=== PATIENT | male | born 1970 | race African-American/Black ===

== ENCOUNTER 2018-02-03 18:02 | Emergency (ER) | payer OTHER ==
[~2018-02-03] VITALS: Ht 182.9 cm; Wt 74.8 kg
[2018-02-03 18:02] VITALS: BP 136/94
--- NOTE | 2018-02-03 19:02 | NUR ---
Fred denia in ED - 02/03/18 at 1917 by RONALDO the patient came to ER today for treatment and evaluation of abdominal pain with nausea and vomiting
--- NOTE | 2018-02-03 19:02 | NUR ---
Note denia in ED - 02/03/18 at 1917 by RONALDO the patient had colostomy - LLQ; appears viable; done January 19, 2018. The patient's RLQ colostomy -closed and new one LLQ created with bowel resection. The patient has history ulcerative colitis
--- NOTE | 2018-02-03 19:02 | NUR ---
Fred loza in [facility] - 02/03/18 at 1917 by RONALDO awaiting fo rfMD to see
--- NOTE | 2018-02-03 20:08 | NUR ---
PT TAKEN TO ER BED VIA WC. DR WRIGHT IS AT THE BEDSIDE.
[2018-02-03 20:43] LABS: BASOPHILS % (AUTO) 0.4 % (0.0-2.0); EOSINOPHILS % (AUTO) 0.9 % (0.0-6.0); HEMATOCRIT 39 % (39-51); LYMPHOCYTES # (AUTO) 0.9 /CMM (0.8-4.8); LYMPHOCYTES % (AUTO) 18.1 % (20.0-44.0); MEAN CORPUSCULAR HEMOGLOBIN 30 PG (26.0-33.0); MEAN CORPUSCULAR HGB CONC 34 g/dl (31.0-36.0); MEAN CORPUSCULAR VOLUME 90 fL (80-96); MONOCYTES # (AUTO) 0.5 /CMM (0.1-1.30); MONOCYTES % (AUTO) 10.5 % (2.0-12.0); NEUTROPHILS # (AUTO) 3.4 /CMM (1.8-8.9); NEUTROPHILS % (AUTO) 70.1 % (43.0-81.0); PLATELET COUNT (AUTO) 298 /CMM (150-450); RDW COEFFICIENT OF VARIATION 12.7 (11.5-15.0); RED BLOOD CELL COUNT(AUTO) 4.31 MIL/uL (4.5-6.0); WHITE BLOOD COUNT (AUTO) 4.8 K/uL (4.3-11.0)
[2018-02-03 20:51] LABS: APPEARANCE,URINE Clear (CLEAR); BILIRUBIN,URINE SMALL (NEGATIVE); BLOOD, URINE Negative Ery/uL (NEGATIVE); COLOR,URINE Yellow (YELLOW); KETONES,URINE 15 (NEGATIVE); LEUKOCYTE ESTERASE ,URINE Negative (NEGATIVE); NITRITE, URINE Negative (NEGATIVE); PROTEIN,URINE 100 mg/dl (NEGATIVE); UGLUCOSE Negative (NEGATIVE)
[2018-02-03 20:54] LABS: CALCIUM, SERUM 8.5 mg/dL (8.5-10.1); CARBON DIOXIDE 23 mmol/L (21-32); CHLORIDE 102 mmol/L (98-107); CREATININE 1.1 mg/dL (0.6-1.3); GLUCOSE 89 mg/dL (74-106); POTASSIUM 3.1 mmol/L (3.5-5.1); SODIUM SERUM 133 mmol/L (136-145); UREA NITROGEN, BLOOD 9 mg/dL (7-18)
[2018-02-03 21:00] LABS: ALANINE AMINOTRANSFERASE 38 U/L (12-78); ALBUMIN 2.5 g/dL (3.4-5.0); ALKALINE PHOSPHATASE 55 U/L (46-116); ASPARTATE AMINOTRANSFERASE 34 U/L (15-37); BILIRUBIN,DIRECT 0.1 mg/dL (0.0-0.2); BILIRUBIN,TOTAL 0.4 mg/dL (0.2-1.0); LIPASE 114 U/L (73-393); TOTAL PROTEIN, SERUM 11.2 g/dL (6.4-8.2)
[2018-02-03 21:02] LABS: TROPONIN I < 0.017 ng/mL (0.00-0.056)
[2018-02-03 21:14] LABS: BACTERIA,URINE Few /HPF (None Seen); MUCUS,URINE Moderate /LPF (None Seen); RBC,URINE 0-2 /HPF (0-2); SQUAMOUS EPITHELIAL CELL,UR Few /HPF (None Seen); WBC,URINE 0-2 /HPF (0-3)
[2018-02-03] MEDS ORDERED: POTASSIUM CHLORIDE 20 MEQ TAB.PRT.SR PO ONE (21:30)
--- NOTE | 2018-02-03 21:48 | NUR ---
PT REFUSED MEDICATION AND AMBULATED OUT WITH A SLIGHT LIMP.
== END 2018-02-03 21:50 | disposition home or self-care (01) ==
LOC: ER 18:07
DX: F19.10 Other psychoactive substance abuse, uncomplicated (principal); E87.6 Hypokalemia; R10.9 Unspecified abdominal pain; J45.909 Unspecified asthma, uncomplicated; E11.9 Type 2 diabetes mellitus without complications; F17.200 Nicotine dependence, unspecified, uncomplicated
CPT/HCPCS: 36415; 80048-TC; 80076-TC; 80305; 81000-TC; 83690-TC; 84484-TC; 85025-TC; A4606; Z7610